=== PATIENT | male | born 1990 | race American Indian/Alaskan Native ===

== ENCOUNTER 2020-11-26 02:39 | Emergency (ER) | payer SELFPAY ==
[2020-11-26 04:07] LABS: Bilirubin,Urine NEG (Negative); Blood,Urine SM (Negative); Color,Urine Straw (Yellow); Protein,Urine <15 mg/dL mg/dL (Negative); RBC,Urine < 1.0 /HPF (0.0-6.0); Urobilinogen,Urine < 2.0 mg/dL (<2.0)
[2020-11-26 04:17] LABS: Amphetamine Screen,Urine PRESUMPTIVE NEGATIVE; Benzodiazepines Screen,Urine PRESUMPTIVE NEGATIVE; Cannabinoid Screen,Urine PRESUMPTIVE POSITIVE; Cocaine Screen,Urine PRESUMPTIVE NEGATIVE; Methadone Screen,Urine PRESUMPTIVE NEGATIVE; Opiate Screen,Urine PRESUMPTIVE NEGATIVE
[2020-11-26 04:52] LABS: Basophils % (Auto) 0.3 % (0.0-1.8); Eosinophils # (Auto) 0.5 K/mm3 (0.0-0.4); Eosinophils % (Auto) 4.7 % (0.0-4.3); Hematocrit 41.8 % (35.5-45.6); Hemoglobin 13.9 gm/dl (11.8-15.2); Lymphocytes # (Auto) 2.7 K/mm3 (1.2-5.4); Lymphocytes % (Auto) 27.7 % (13.4-35.0); Mean Corpuscular HGB Conc 33 % (32-34); Mean Corpuscular Volume 84 fl (84-94); Monocytes # (Auto) 0.8 K/mm3 (0.0-0.8); Platelet Count 388 K/mm3 (140-440); Red Blood Count 4.97 M/mm3 (3.65-5.03); Red Cell Distribution Width 15.3 % (13.2-15.2)
[2020-11-26 05:06] LABS: BUN/Creatinine Ratio 13; Blood Urea Nitrogen 12 mg/dL (9-20); Calcium 9.9 mg/dL (8.4-10.2); Hemolysis Index 8
--- NOTE | 2020-11-26 06:51 | Emergency Department Report ---
ED Psych HPI - General Chief Complaint: Psych Stated Complaint: MH EVAL Time Seen by Provider: 11/26/20 06:47 Source: patient Mode of arrival: Ambulatory - History of Present Illness Initial Comments: 30-year-old male, reports history of schizophrenia, presents to ED because "I h ad nowhere else to go." Patient is also reporting some suicidal ideation for "a minute." Patient cannot say exactly how long he has had suicidal thoughts. Patient reports auditory hallucinations, but states they are not saying negative things to him. When asked if he has a plan for suicide, patient states "I can do just about anything." Patient does not seem to have a specific plan. Patient reports he is off his psychiatric medications. MD Complaint: suicidal ideation -: unknown Associated Psychiatric Symptoms: auditory hallucinations History of same: Yes Quality: constant Improves With: none Worsens With: none Context: not taking psychiatric Associated Symptoms: denies other symptoms Treatments Prior to Arrival: none If Self Harm: admits thoughts of - Related Data Previous Rx's Medication Instructions Recorded Last Taken Type FLUoxetine [PROzac] 20 mg PO QDAY #30 capsule 11/27/20 Unknown Rx Mirtazapine [Remeron] 15 mg PO QHS #30 tablet 11/27/20 Unknown Rx risperiDONE [RisperDAL] 0.25 mg PO BID #60 tab 11/27/20 Unknown Rx Allergies Allergy/AdvReac Type Severity Reaction Status Date / Time No Known Allergies Allergy Unverified 11/26/20 03:34 ED Review of Systems ROS: Stated complaint: EVAL Other details as noted in HPI Comment: All other systems reviewed and negative Psychiatric: suicidal thoughts ED Past Medical Hx - Past Medical History Previous Medical History?: No - Surgical History Past Surgical History?: No - Medications Home Medications: Home Medications Medication Instructions Recorded Confirmed Last Taken Type FLUoxetine [PROzac] 20 mg PO QDAY #30 capsule 11/27/20 Unknown Rx Mirtazapine [Remeron] 15 mg PO QHS #30 tablet 11/27/20 Unknown Rx risperiDONE [RisperDAL] 0.25 mg PO BID #60 tab 11/27/20 Unknown Rx ED Physical Exam - General Limitations: No Limitations General appearance: alert, in no apparent distress - Head Head exam: Present: atraumatic, normocephalic - Eye Eye exam: Present: normal appearance, EOMI - ENT ENT exam: Present: mucous membranes moist - Neck Neck exam: Present: normal inspection - Respiratory Respiratory exam: Present: normal lung sounds bilaterally. Absent: respiratory distress - Cardiovascular Cardiovascular Exam: Present: regular rate, normal rhythm - GI/Abdominal GI/Abdominal exam: Absent: distended - Extremities Exam Extremities exam: Present: normal inspection - Neurological Exam Neurological exam: Present: alert, oriented X3 - Psychiatric Psychiatric exam: Present: normal affect, normal mood - Skin Skin exam: Present: warm, dry, intact, normal color ED Course Vital Signs 11/26/20 11/26/20 11/26/20 03:33 09:35 10:43 Temperature 98.4 F 98.0 F 97.1 F L Pulse Rate 70 68 75 Respiratory 20 18 Rate Blood Pressure 131/76 Blood Pressure 113/69 [Right] O2 Sat by Pulse 100 100 Oximetry 11/26/20 11/27/20 11/27/20 20:05 07:00 08:00 Temperature 98.1 F 98.0 F Pulse Rate 56 L 83 Respiratory 18 20 20 Rate Blood Pressure Blood Pressure 98/53 123/66 [Right] O2 Sat by Pulse 100 97 97 Oximetry ED Medical Decision Making - Lab Data Result diagrams: 11/26/20 04:34 11/26/20 04:34 - Medical Decision Making 30-year-old male, history of schizophrenia, presents to ED with suicidal ideations, currently off his medications. Labs are unremarkable. Vital signs a re stable. 1013 recommended by psychiatry team. Will dispo per psych. Critical care attestation.: If time is entered above; I have spent that time in minutes in the direct care of this critically ill patient, excluding procedure time. ED Disposition Clinical Impression: Schizophrenia Disposition: 01 HOME / SELF CARE / HOMELESS Is pt being admited?: No Condition: Stable Instructions: Managing Schizophrenia Additional Instructions: Professional and Agency Contacts To help [facility](07/10) [place] Crisis Line: Suicide Prevention Line: Crisis Text Line: Text START to 426914 Emergency: 911 Outpatient [facility] Behavior[facility] Resources: DEKALB: [facility] [address] [place], [place] [address] [facility] [address] [place] [address] MARIELA: [facility] - [address] [place] [address] Friday thru Friday - 8am - 5pm EDI: [facility] Address: [address], [place] [address] [place]HAM: [facility] Address: [address] [place], [place] [address]Friday thru Friday- 7am-2pm [facility] Address: [address] [place] [address] Friday thru Friday: 8:30AM-5PM Prescriptions: Mirtazapine [Remeron] 15 mg PO QHS #30 tablet FLUoxetine [PROzac] 20 mg PO QDAY #30 capsule risperiDONE [RisperDAL] 0.25 mg PO BID #60 tab Referrals: PRIMARY CARE, [Primary Care Provider] - 3-5 Days
[2020-11-26] MEDS ORDERED: LORazepam 2 MG/ML VIAL IM ONE (10:13)
[2020-11-26] MEDS ORDERED: ZIPRASIDONE MESYLATE 20 MG VIAL IM ONE (10:13)
--- NOTE | 2020-11-26 10:19 | Consultation ---
History of Present Illness - Reason for Consult Consult date: 11/26/20 Reason for consult: SI - History of Present Psychiatric Illness Per ER Note: 30-year-old male, reports history of schizophrenia, presents to ED because "I had nowhere else to go." Patient is also reporting some suicidal ideation for "a minute." Patient cannot say exactly how long he has had suicidal thoughts. Patient reports auditory hallucinations, but states they are not saying negative things to him. When asked if he has a plan for suicide, patient states "I can do just about anything." Patient does not seem to have a specific plan. Patient reports he is off his psychiatric medications. Loyd Bull is a 30y/o male who states he presented to the ER due to being off his meds and "getting into situations where he is alone and want to do things to myself and people." He makes poor eye contact. He says he's been off his meds for about 2 years. He says he is originally from [place], but was in [place] recently and only been in [place] "about 2 to 3 weeks." The patient says "I get lost in my thoughts and don't know what to do at that point." The patient verbalizes seeing spirits and demons. He also verbalizes hearing voices that he "doesn't know if they are real or not." When asked if they are telling his to hurt himself or others, he replies "I can't make them out at times." The patient says he "feels suicidal and doesn't know what to do right now." He denies having a plan. He denies any illicit drug use outside of [facility], but states "about a month ago I did meth and mollies." PAST PSYCHIATRIC HISTORY Diagnoses: schizophrenia Suicide attempts or Self-harm behavior: No Prior psychiatric hospitalizations: Yes Substance Abuse history: Meth, mulu Previous psychiatric medications tried: could not recall Outpatient treatment: Denies PAST MEDICAL HISTORY: None reported Family Psychiatric History: None reported or documented SOCIAL HISTORY Marital Status: Single Living Arrangements: Homeless Employment Status: Unemployed Access to guns/weapons: None report Education: High school History of Abuse: Denies Legal History: None reported REVIEW OF SYSTEMS Constitutional: Negative for weight loss ENT: Negative for stridor Respiratory: Negative for cough or hemoptysis All other systems reviewed and are negative MENTAL STATUS EXAMINATION General Appearance and Behavior: Age appropriate, good hygiene, wearing appropriate clothes, calm and cooperative Cooperation: cooperative Psychomotor Behavior: Psychomotor normal Mood: depressed Affect and affective range: congruent with stated mood Thought Process: circumstantial Thought Content: hallucinations, SI Speech: Normal rate, volume and rhythm Suicidal Ideation: Yes Homicidal Ideation: Denies HI Hallucinations: A/V Delusions: None elicited Impulse Control: Impaired Insight and Judgment: Limited insight and judgment Memory: Limited Attention: Limited Orientation: Alert, oriented Assessment and Plan (1)Schizophrenia TREATMENT PLAN 1013 Risperidone 0.25mg po BID Prozac 20mg po daily Trazodone 50mg po qhs Sitter: per primary Medical: per primary Disposition: Recommend acute psychiatric inpatient treatment Will follow. Thanks Case staffed with Dr. Astorga. Medications and Allergies Allergies Allergy/AdvReac Type Severity Reaction Status Date / Time No Known Allergies Allergy Unverified 11/26/20 03:34 Mental Status Exam - Vital signs Last Vital Signs Temp 98.0 F 11/26/20 09:35 Pulse 68 11/26/20 09:35 Resp 20 11/26/20 03:33 BP 131/76 11/26/20 03:33 Pulse Ox 100 11/26/20 03:33 Results Result Diagrams: 11/26/20 04:34 11/26/20 04:34 Abnormal lab results 11/26/20 11/26/20 11/26/20 Range/Units 04:34 04:34 04:34 RDW 15.3 H (13.2-15.2) % Piatt % (Auto) 8.0 H (0.0-7.3) % Eos % (Auto) 4.7 H (0.0-4.3) % Eos # (Auto) 0.5 H (0.0-0.4) K/mm3 Glucose 103 H (75-100) mg/dL Salicylates < 0.3 L (2.8-20.0) mg/dL Acetaminophen (10.0-30.0) ug/mL 11/26/20 Range/Units 04:34 RDW (13.2-15.2) % Piatt % (Auto) (0.0-7.3) % Eos % (Auto) (0.0-4.3) % Eos # (Auto) (0.0-0.4) K/mm3 Glucose (75-100) mg/dL Salicylates (2.8-20.0) mg/dL Acetaminophen 5.0 L (10.0-30.0) ug/mL All other labs normal.
[2020-11-26] MEDS ORDERED: FLUoxetine 20 MG CAP PO SCH (11:00)
[2020-11-26] MEDS: risperiDONE 0.25 MG TAB PO SCH (21:36)
[2020-11-26] MEDS ORDERED: traZODone 50 MG TAB PO SCH (22:00)
[2020-11-27 07:27] VITALS: BP 123/66
--- NOTE | 2020-11-27 09:19 | Progress Note ---
Subjective - Reason for Consult Consult date: 11/27/20 Reason for consult: SI - Chief Complaint Chief complaint: The patient was seen today. He is a/o x 3. He is more talkative. He says "I'm alright" when I asked how was he feeling. The patient says "I was wanting to see a therapist." I explained to the patient that he was in the emergency room and no therapists are provided here. He says "I'm not from here and need to know where I can go." The patient denies SI/HI. He says "no, I'm not feeling like that now but that is why I came in." He denies hallucinations of any kind. The patient says the trazodone did not work and that he remember that he usually takes Remeron. REVIEW OF SYSTEMS Constitutional: Negative for weight loss ENT: Negative for stridor Respiratory: Negative for cough or hemoptysis All other systems reviewed and are negative MENTAL STATUS EXAMINATION General Appearance and Behavior: Age appropriate, good hygiene, wearing appropriate clothes, calm and cooperative Cooperation: cooperative Psychomotor Behavior: Psychomotor normal Mood: alright Affect and affective range: congruent with stated mood Thought Process: goal directed Thought Content: None Speech: Normal rate, volume and rhythm Suicidal Ideation: Denies Homicidal Ideation: Denies HI Hallucinations: Denies Delusions: None elicited Impulse Control: Impaired Insight and Judgment: Limited insight and judgment Memory: Limited Attention: Limited Orientation: Alert, oriented Assessment and Plan (1)Schizophrenia TREATMENT PLAN d/c 1013 Risperidone 0.25mg po BID Prozac 20mg po daily Remeron 15mg po qhs Sitter: per primary Medical: per primary Disposition: Do not recommend acute psychiatric inpatient treatment. The patient understands that is SI/HI are to arise he is to seek immediate assistance. [employer] to give the patient all resources to help him maintain continuity of mental wellness. Please give the patient transportation pass if needed The patient to follow up with outpatient psych in 7 to 14 days upon discharge Will will sign off. Thanks [facility] staffed with Dr. Astorga. Mental Status Exam - Vital signs Last Vital Signs Temp 98.0 F 11/27/20 07:00 Pulse 83 11/27/20 07:00 Resp 20 11/27/20 07:00 BP 123/66 11/27/20 07:00 Pulse Ox 97 11/27/20 07:00
[2020-11-27] MEDS: risperiDONE 0.25 MG TAB PO SCH (10:16)
--- NOTE | 2020-11-27 10:41 | Event Note ---
Date: 11/27/20 The patient stopped me while I was going to speak with another patient. He is argumentative and rude. He "states nobody is helping me. I asked for a therapist and not getting what I need." I explained to the patient again that he was in the ER and he don't have therapist on staff. The patient replies "don't interrupt me while I'm talking." He then says, also "I've been getting medications I don't take." I told the patient because he could not recall his meds yesterday. The nurse states the patient refused all his meds.
--- NOTE | 2020-11-27 11:25 | Event Note ---
Date: 11/27/20 Patient has been seen and evaluated by psychiatry team. 1013 has been rescinded. Patient currently denies any SI at this time. He will be discharged with outpatient resources.
== END 2020-11-27 12:10 | disposition home or self-care (01) ==
LOC: ED 02:39
DX: F20.9 Schizophrenia, unspecified (principal); Z79.899 Other long term (current) drug therapy
CPT/HCPCS: 36415; 80048; 80307; 81001; 85025; 96372; 99284; J2060; J3486; 80320; G0480